=== PATIENT | male | born 1995 | race Caucasian/White ===

== ENCOUNTER 2025-07-13 17:52 | Emergency (ER) | payer OTHER ==
[~2025-07-13] VITALS: Ht 193 cm; Wt 118.0 kg
[2025-07-13 18:42] VITALS: PULSE 88; RESP 20
[2025-07-13] MEDS: IPRATROPIUM/ALBUTEROL 0.5-3(2.5)MG/3ML NEB HHN ONE ×2 (18:42→22:01)
[2025-07-13] MEDS: AMOXICILLIN/POTASSIUM CLAVULANATE 875/125MG TAB PO ONE (18:50)
[2025-07-13] MEDS: PREDNISONE 20MG TABLET PO ONE (18:51)
[2025-07-13] MEDS: AZITHROMYCIN 500 MG TABLET PO ONE (18:51)
[2025-07-13 20:30] LABS: INFLUENZA TYPE A Presumptive Negative (Pres. Neg.); INFLUENZA TYPE B Presumptive Negative (Pres. Neg.)
[2025-07-13 21:21] LABS: BASOPHILS % 0.2 % (0.0-2.0); EOSINOPHILS % 0.1 % (0.0-5.0); HEMATOCRIT. 42.6 % (42.0-52.0); HEMOGLOBIN. 14.0 g/dL (14.0-18.0); LYMPHOCYTES % 8.1 % (20.0-50.0); MEAN PLATELET VOLUME 9.5 fl (7.4-10.4); MONOCYTES % 6.0 % (2.0-8.0); NEUTROPHILS % 85.6 % (40.0-76.0); PLATELET 246 x1000/uL (130-400); RED BLOOD CELL COUNT 5.05 mill/uL (4.7-6.1); RED CELL DISTRIBUTION WIDTH 15.2 % (11.6-14.6)
[2025-07-13 21:36] LABS: CREATININE 1.0 mg/dL (0.6-1.3)
[2025-07-13 21:37] LABS: ETHANOL BLOOD < 10 mg/dL (<10); PROTEIN TOTAL 8.5 g/dL (6.0-8.3); TROPONIN I HIGH SENSITIVITY < 4 ng/L (3.0-53); UREA NITROGEN BLOOD 11 mg/dL (9-23)
[2025-07-13 21:38] LABS: ASPARTATE AMINOTRANSFERASE 17 IU/L (<34)
[2025-07-13 21:39] LABS: BILIRUBIN DIRECT 0.3 mg/dL (<=3.0); BILIRUBIN TOTAL 0.8 mg/dL (0.1-1.0)
[2025-07-13 21:44] LABS: INR 1.1
[2025-07-13] MEDS ORDERED: AMOX1TAB16 MT (22:01)
[2025-07-13] MEDS ORDERED: ALBU18HF2 IH (22:01)
[2025-07-13] MEDS ORDERED: GUAI120017 MT (22:01)
[2025-07-13] MEDS ORDERED: P50 MT (22:01)
[2025-07-13] MEDS ORDERED: AZIT250T12 MT (22:01)
[2025-07-13 22:02] VITALS: PULSE 88; RESP 22; O2SAT 97
[2025-07-13] MEDS ORDERED: FLUT9.9S BOTHNSTRLS (22:22)
[2025-07-13 22:58] VITALS: BP 138/90; PULSE 93; RESP 20; TEMP 36.6; O2SAT 98
== END 2025-07-13 23:00 | disposition home or self-care (01) ==
LOC: ER 17:52
DX: J40 Bronchitis, not specified as acute or chronic (principal); Z79.52 Long term (current) use of systemic steroids; Z20.822 Contact with and (suspected) exposure to COVID-19
CPT/HCPCS: 80076; 80048; 80320; 83880; 83690; 85025; 85610; 85730; 84484; 87804 ×2; 36415; 71045; 94640; 93005; 99285; 87426; J7512; Z7610 ×3; 94070; G0480